=== PATIENT | female | born 1970 | race Asian ===

== ENCOUNTER 2019-04-02 19:59 | Inpatient (IN) | payer BC, OTHER ==
[~2019-04-02] VITALS: Ht 152.4 cm; Wt 54.0 kg
[2019-04-02] MEDS ORDERED: MORPHINE SULFATE 10 MG/ML INJ 1ML SDV IV ONE (20:45)
[2019-04-02 21:11] LABS: Basophils # (auto) 0 uL; Basophils % (auto) 0.3 % (0.0-2.0); Eosinophils # (auto) 0.1 uL; Eosinophils % (auto) 0.6 % (0.0-7.0); Hematocrit 45.3 % (36.0-46.0); Hemoglobin 15.2 g/dL (12.2-16.2); Lymphocytes # (auto) 0.8 uL; Lymphocytes % (auto) 7.1 % (10.0-50.0); Mean Corpuscular Hgb Conc. 33.6 g/dL (32.0-36.0); Mean Corpuscular Volume 92.3 fL (80.0-100.0); Monocytes # (auto) 0.6 uL; Monocytes % (auto) 4.7 % (0.0-12.0); Neutrophils # (auto) 10.4 uL; Neutrophils % (auto) 87.3 % (37.0-80.0); Platelet Count (auto) 246 10^3/uL (140-450); Red Cell Distribution Width 13.2 % (11.8-14.3); White Blood Cell 11.9 10^3/uL (4.4-10.8)
[2019-04-02 21:30] LABS: INR 1.01 (0.9-1.15); Partial Thromboplastin Time 25.6 sec (23.64-32.05)
[2019-04-02] MEDS ORDERED: ONDANSETRON HCL 4 MG/2 ML VIAL IV ONE (21:30)
[2019-04-02 21:32] LABS: Albumin 4.2 g/dL (3.4-5.0); Calcium 9.2 mg/dL (8.5-10.1); Magnesium 2.2 mg/dL (1.6-2.6); Potassium 3.9 mmol/L (3.5-5.1)
[2019-04-02 21:37] LABS: BUN/Creatinine Ratio 20.5; Bilirubin, Total 0.6 mg/dL (0.2-1.0); Total Protein 8.1 g/dL (6.4-8.2)
[2019-04-02 21:51] LABS: Urine Bacteria FEW /hpf (None Seen); Urine Blood 1+ /uL (Negative); Urine Mucus FEW (None Seen); Urine Specific Gravity 1.027 (1.001-1.035); Urine WBC 3 /hpf (0 - 5)
[2019-04-03] MEDS ORDERED: LORazepam 0.5 MG TAB PO PRN (00:30)
[2019-04-03] MEDS ORDERED: HYDROcodone-ACET 5/325MG TAB PO PRN (00:30)
[2019-04-03] MEDS ORDERED: ACETAMINOPHEN 325 MG TAB PO PRN (00:30)
[2019-04-03] MEDS ORDERED: DOCUSATE SOD 100 MG CAP PO PRN (00:30)
--- NOTE | 2019-04-03 01:45 | NUR ---
MS admit from ER DINO GALDAMEZ admitted to tele/MS after NO SBAR WAS received. Patient oriented to NICKI LOPEZ primary RN, unit, room, bed, and unit policies regarding patient care and visiting hours. Patient weighed by bedscale and encouraged to call if they need something. Patient is A/O x4, skin intact, on RA, ambulatory, 18g IV to the left wrist, NG tube to the right nare and connected to LIS. All questions and concerns addressed, patient verbalized understanding.
[2019-04-03 02:17] VITALS: BP 121/83
[2019-04-03] MEDS ORDERED: ESCI10TA PO (02:34)
[2019-04-03] MEDS ORDERED: CYCL7.5T15 PO (02:34)
[2019-04-03] MEDS: ONDANSETRON HCL 4 MG/2 ML VIAL IV PRN ×4 (03:09→18:32)
[2019-04-03] MEDS: MORPHINE SULFATE 4 MG/ML SYR/VIAL IV PRN ×4 (03:10→18:32)
[2019-04-03 05:30] VITALS: BP 99/57
[2019-04-03 06:00] LABS: Basophils # (auto) 0 uL; Basophils % (auto) 0.2 % (0.0-2.0); Eosinophils # (auto) 0 uL; Eosinophils % (auto) 0.1 % (0.0-7.0); Hematocrit 42.7 % (36.0-46.0); Hemoglobin 14.8 g/dL (12.2-16.2); Lymphocytes # (auto) 0.8 uL; Mean Corpuscular Hgb Conc. 34.7 g/dL (32.0-36.0); Mean Corpuscular Volume 92.3 fL (80.0-100.0); Monocytes # (auto) 0.6 uL; Monocytes % (auto) 6.9 % (0.0-12.0); Neutrophils # (auto) 6.9 uL; Neutrophils % (auto) 82.8 % (37.0-80.0); Platelet Count (auto) 235 10^3/uL (140-450); Red Blood Cells 4.62 10^6/uL (4.0-5.20); Red Cell Distribution Width 13.4 % (11.8-14.3); White Blood Cell 8.3 10^3/uL (4.4-10.8)
[2019-04-03 06:29] LABS: Potassium 3.9 mmol/L (3.5-5.1)
[2019-04-03 06:35] LABS: BUN/Creatinine Ratio 23.6; Calcium 8.6 mg/dL (8.5-10.1)
--- NOTE | 2019-04-03 06:54 | NUR ---
TOTAL OUTPUT FROM NG TUBE WAS 100 mL, IT WAS YELLOWISH/PINKISH IN COLOR. CALL LIGHT IS WITHIN REACH. WILL ENDORSE CARE TO DAYSHIFT RN.
--- NOTE | 2019-04-03 07:15 | NUR ---
Opening Shift Note Assumed care of patient, awake, alert, and oriented x4. No S/S of distress/SOB, but patient is reporting nausea, and medial abdominal pain of 4/10. IV is in the left wrist 18 gauge, and is asymptomatic, intact, patent, and saline locked. Bed is locked and in lowest position and call light is within reach. Instructed on POC and to call for assist PRN, and patient verbalized understanding. Will continue to monitor for changes Q1hr and PRN.
--- NOTE | 2019-04-03 07:16 | NUR ---
Patient NG tube is patent and set to LIS, clear liquid pink output at 200 mL.
[2019-04-03 08:25] VITALS: BP 110/65
--- NOTE | 2019-04-03 08:30 | NUR ---
Omer Billings in case management for update of patient transfer status; no order for transfer yet received and waiting on hospitalist to consult patient.
--- NOTE | 2019-04-03 09:08 | NUR ---
I called [facility] [phone] and left message for them to call me back regarding the transfer of this patient. I also spoke with nurse Natasha regarding the request to transfer this patient to [facility]-I let her know that we need an order placed for the transfer.
--- NOTE | 2019-04-03 09:15 | NUR ---
I received call from Prateek at [facility] letting me know that they do not have any information on a transfer request for this patient-I will call their automated transfer request line when MD places order for transfer.
--- NOTE | 2019-04-03 10:40 | NUR ---
Dr. Mcdaniel, Hospitalist, at bedside; new orders received.
[2019-04-03] MEDS ORDERED: GASTROGRAFIN 120 ML SOL ONE (10:41)
[2019-04-03] MEDS ORDERED: D5W/SOD CHL 0.9%/KCL 40MEQ 1,000 ML IV SCH (10:45)
--- NOTE | 2019-04-03 11:30 | NUR ---
Patient taken down to Radiology for Small Bowel Series.
--- NOTE | 2019-04-03 13:09 | NUR ---
I called [facility] [phone] and was transferred to the automated transfer request line. I provided clinical information as requested, provided contact information for Dr. Mcdaniel and the nurse's station. Faxed requested face sheet to [facility].
--- NOTE | 2019-04-03 13:15 | NUR ---
1310 04/03/19 I contacted [facility] [employer] Celeste [phone] and left message asking for authorization to transfer to [facility] as well as authorization for transportation.
--- NOTE | 2019-04-03 14:49 | NUR ---
I received a call from the [facility] Transfer [facility]-provided them with additional clinical information as requested. Faxed requested clinical information to [phone]. She is going to call Dr. Tidwell and confirm his acceptance of this patient-she did say they have no beds available at this time.
--- NOTE | 2019-04-03 15:28 | NUR ---
I received a call from Kathrin at [facility]-re-faxed clinical information as requested to alternate fax number [phone].
--- NOTE | 2019-04-03 15:47 | NUR ---
I called [facility] ([phone]) and spoke with Bay, placed patient on will-call pending transfer to [facility].
--- NOTE | 2019-04-03 16:50 | NUR ---
Received call from [facility] requesting patient current vital signs.
[2019-04-03 17:40] VITALS: BP 123/81
--- NOTE | 2019-04-03 17:58 | NUR ---
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 Patient will go to room 4490, unit 4MN, at [facility]; call report to [phone] before patient transfer.
--- NOTE | 2019-04-03 18:11 | NUR ---
Patient going to room 4492, on unit 4MN, not 4490.
--- NOTE | 2019-04-03 18:16 | NUR ---
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
--- NOTE | 2019-04-03 20:15 | NUR ---
Pt being trans to another hosp Order obtained for transfer of DINO GALDAMEZ to [facility]. Report given to EMS transport team. Medication reconciliation form completed and copy given to patient. Transported via EMS along with copied chart and imaging films/disk and all personal belongings. No distress noted on time of departure. Family notified of destination and room number, verbalized understanding.
[2019-04-03] MEDS ORDERED: FAMOTIDINE (10MG/ML) 2ML VL IV SCH (22:00)
== END 2019-04-03 19:35 | disposition short-term general hospital (02) | DRG 390 ==
LOC: EDBD 19:59 → ER 19:59 → WEST WING 20:00
PROVIDERS: ADMIT Hospitalist; ATTEND Internal Medicine
DX: K56.609 Unspecified intestinal obstruction, unspecified as to partial versus complete obstruction (principal); F41.9 Anxiety disorder, unspecified; K56.7 Ileus, unspecified; K80.20 Calculus of gallbladder without cholecystitis without obstruction; Z87.19 Personal history of other diseases of the digestive system
CPT/HCPCS: 36415; 71045; 74176; 74250; 80048; 80053; 81001; 81025; 82150; 83690; 83735; 85025; 85610; 85730; 93005; G0378; J2405